=== PATIENT | female | born 1995 | race Hispanic/Latino ===

== ENCOUNTER 2018-09-26 23:48 | Emergency (ER) | payer SELFPAY ==
[2018-09-27 00:21] LABS: Urine Blood 3+ (NEG); Urine Glucose TRACE (NEG); Urine Protein 2+ (NEG); Urine Specific Gravity 1.025 (1.005-1.030); Urine pH 6.5 (5.0-7.0)
--- NOTE | 2018-09-27 00:33 | EDPHYS ---
Physician Documentation [facility] Name: Emily Jiménez Age: 22 yrs Sex: Female : 1995 Arrival Date: 09/26/2018 Time: 23:49 Bed 5 Private MD: ED Physician Jersey Jewell HPI: 09/27 00:00 This 22 yrs old Female presents to ER via Unassigned with complaints of Pain snw With Urination - blood, Abdominal Pain. 00:00 Onset: The symptoms/episode began/occurred 2 day(s) ago, and became persistent. snw Associated signs and symptoms: Pertinent positives: abdominal pain, dysuria. Modifying factors: The patient symptoms are alleviated by nothing, the patient symptoms are aggravated by nothing. The patient has experienced a previous episode. It is unknown whether or not the patient has recently seen a physician. states last time she urinated she had some hematuria. 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 - Social history:: Smoking status: Patient/guardian denies using tobacco. - Ebola Screening: : No symptoms or risks identified at this time. ROS: 00:00 Constitutional: Negative for fever, chills, and weight loss, Eyes: Negative for injury, snw pain, redness, and discharge, ENT: Negative for injury, pain, and discharge, Neck: Negative for injury, pain, and swelling, Cardiovascular: Negative for chest pain, palpitations, and edema, Respiratory: Negative for shortness of breath, cough, wheezing, and pleuritic chest pain, Back: Negative for injury and pain, MS/Extremity: Negative for injury and deformity, Skin: Negative for injury, rash, and discoloration, Neuro: Negative for headache, weakness, numbness, tingling, and seizure. 00:00 Abdomen/GI: Positive for abdominal pain, nausea, Negative for vomiting. 00:00 : Positive for urinary symptoms. Exam: 09/26 23:59 Constitutional: This is a well developed, well nourished patient who is awake, alert, snw and in no acute distress. Head/Face: Normocephalic, atraumatic. Eyes: Pupils equal round and reactive to light, extra-ocular motions intact. Lids and lashes normal. Conjunctiva and sclera are non-icteric and not injected. Cornea within normal limits. Periorbital areas with no swelling, redness, or edema. ENT: Nares patent. No nasal discharge, no septal abnormalities noted. Tympanic membranes are normal and external auditory canals are clear. Oropharynx with no redness, swelling, or masses, exudates, or evidence of obstruction, uvula midline. Mucous membranes moist. Neck: Trachea midline, no thyromegaly or masses palpated, and no cervical lymphadenopathy. Supple, full range of motion without nuchal rigidity, or vertebral point tenderness. No Meningismus. Chest/axilla: Normal chest wall appearance and motion. Nontender with no deformity. No lesions are appreciated. Cardiovascular: Regular rate and rhythm with a normal S1 and S2. No gallops, murmurs, or rubs. Normal PMI, no JVD. No pulse deficits. Respiratory: Lungs have equal breath sounds bilaterally, clear to auscultation and percussion. No rales, rhonchi or wheezes noted. No increased work of breathing, no retractions or nasal flaring. Back: No spinal tenderness. No costovertebral tenderness. Full range of motion. Skin: Warm, dry with normal turgor. Normal color with no rashes, no lesions, and no evidence of cellulitis. MS/ Extremity: Pulses equal, no cyanosis. Neurovascular intact. Full, normal range of motion. Neuro: Awake and alert, GCS 15, oriented to person, place, time, and situation. Cranial nerves II-XII grossly intact. Motor strength 5/5 in all extremities. Sensory grossly intact. Cerebellar exam normal. Normal gait. Abdomen/GI: Inspection: abdomen appears normal, Bowel sounds: normal, Palpation: mild abdominal tenderness, in the right lower quadrant and left lower quadrant. Vital Signs: 09/27 00:05 BP 122 / 84; Pulse 78; Resp 18; Temp 97.8(O); Pulse Ox 98% on R/A; Weight 52.16 kg; lp1 Height 5 ft. 4 in. (162.56 cm); Pain 6/10; 00:05 Body Mass Index 19.74 (52.16 kg, 162.56 cm) lp1 MDM: 09/26 23:59 Patient medically screened. snw 09/27 00:35 Data reviewed: vital signs, nurses notes. Data interpreted: Pulse oximetry: on room air snw is 98 %. Interpretation: normal. Counseling: I had a detailed discussion with the patient and/or guardian regarding: the historical points, exam findings, and any diagnostic results supporting the discharge/admit diagnosis, lab results, the need for outpatient follow up, to return to the emergency department if symptoms worsen or persist or if there are any questions or concerns that arise at home. Special discussion: Based on the patient's Hx, exam, and Dx evaluation, there is no indication for emergent surgery or inpatient Tx. It is understood by the patient/guardian that if the Sx's persist or worsen they need to return immediately for re-evaluation. Based on the history and exam findings, there is no indication for further emergent testing or inpatient evaluation. I discussed with the patient/guardian the need to see the primary care provider for further evaluation of the symptoms. 09/26 23:59 Order name: Urine Culture snw 09/26 23:59 Order name: Urine Microscopic Only; Complete Time: 00:43 snw 09/27 00:16 Order name: Urine Dipstick--Ancillary (enter results); Complete Time: 00:31 ak1 09/27 00:16 Order name: Urine --Ancillary (enter results); Complete Time: 00:31 ak1 09/26 23:59 Order name: Urine Test (obtain specimen); Complete Time: 00:17 snw 09/26 23:59 Order name: Urine Dipstick-Ancillary (obtain specimen); Complete Time: 00:17 snw Administered Medications: 00:45 Drug: [place] 5 mg-325 mg 1 tabs Route: PO; lp1 01:01 Follow up: Response: No adverse reaction; Medication administered at discharge. lp1 00:45 Drug: Rocephin (cefTRIAXone) 1 grams Route: IM; Site: right gluteus; lp1 01:01 Follow up: Response: No adverse reaction; Medication administered at discharge. lp1 Disposition: 01:13 Co-signature as Attending Physician, Jersey Jewell MD. rn Disposition: 09/27/18 00:33 Discharged to Home. Impression: Urinary tract infection, site not specified. - Condition is Stable. - Discharge Instructions: Urinary Tract Infection, Adult. - Prescriptions for Pyridium 200 mg Oral Tablet - take 1 tablet by ORAL route every 8 hours for 3 days; 9 tablet. Macrobid 100 mg Oral Capsule - take 1 capsule by ORAL route every 12 hours for 10 days; 20 capsule. - Work release form, Medication Reconciliation Form, Thank You Letter, Antibiotic Education, Prescription Opioid Use form. - Follow up: Private Physician; When: 2 - 3 days; Reason: Recheck today's complaints, Continuance of care, Re-evaluation by your physician. Follow up: Emergency Department; When: As needed; Reason: Worsening of condition. Signatures: Dispatcher [employer] EDMS Tayler Thorne, SUSAN-C INDIRECT SALES EXEC-Csnw Jersey Jewell MD MD rn Riggs, Erika RN RN ed1 Lu Olivares RN RN lp1 Corrections: (The following items were deleted from the chart) 01:02 00:33 09/27/2018 00:33 Discharged to Home. Impression: Urinary tract infection, site lp1 not specified. Condition is Stable. Forms are Medication Reconciliation Form, Thank You Letter, Antibiotic Education, Prescription Opioid Use. Follow up: Private Physician; When: 2 - 3 days; Reason: Recheck today's complaints, Continuance of care, Re-evaluation by your physician. Follow up: Emergency Department; When: As needed; Reason: Worsening of condition. snw
--- NOTE | 2018-09-27 00:33 | ER ---
Nurse's Notes [facility] Name: Emily Jiménez Age: 22 yrs Sex: Female : 1995 Arrival Date: 09/26/2018 Time: 23:49 Bed 5 Private MD: Diagnosis: Urinary tract infection, site not specified Presentation: 09/27 00:01 Presenting complaint: Patient states: Pain with urination since about 1400, states lp1 blood when wiping; Complaint of frequent urination. Transition of care: patient was not received from another setting of care. Onset of symptoms was September 27, 2018. Risk Assessment: Do you want to hurt yourself or someone else? Patient reports no desire to harm self or others. Initial Sepsis Screen: Does the patient meet any 2 criteria? No. Patient's initial sepsis screen is negative. Does the patient have a suspected source of infection? No. Patient's initial sepsis screen is negative. Care prior to arrival: None. 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 - Social history:: Smoking status: Patient/guardian denies using tobacco. - Ebola Screening: : No symptoms or risks identified at this time. Screenin:06 Abuse screen: Denies threats or abuse. Denies injuries from another. Nutritional lp1 screening: No deficits noted. Tuberculosis screening: No symptoms or risk factors identified. Fall Risk None identified. Assessment: 00:05 General: Appears in no apparent distress. Behavior is appropriate for age. Pain: lp1 Complains of pain in suprapubic area Pain currently is 6 out of 10 on a pain scale. Neuro: No deficits noted. Cardiovascular: No deficits noted. Respiratory: No deficits noted. GI: Abdomen is flat, Abdomen is tender to palpation in suprapubic area. : Reports burning with urination, urinary frequency, vaginal bleeding that is spotty. EENT: No deficits noted. Derm: Skin is pink, warm \T\ dry. Musculoskeletal: No deficits noted. Vital Signs: 00:05 BP 122 / 84; Pulse 78; Resp 18; Temp 97.8(O); Pulse Ox 98% on R/A; Weight 52.16 kg; lp1 Height 5 ft. 4 in. (162.56 cm); Pain 6/10; 00:05 Body Mass Index 19.74 (52.16 kg, 162.56 cm) lp1 ED Course: 09/26 23:49 Patient arrived in ED. am2 23:54 Tayler Thorne F[facility]C [facility] snw 23:54 Jersey Jewell MD is Attending Physician. snw 09/27 00:01 Lu Olivares, RN is Primary Nurse. lp1 00:02 Triage completed. lp1 00:05 Arm band placed on left wrist. lp1 00:07 No provider procedures requiring assistance completed. Patient did not have IV access lp1 during this emergency room visit. 00:08 Patient has correct armband on for positive identification. lp1 Administered Medications: 00:45 Drug: [place] 5 mg-325 mg 1 tabs Route: PO; lp1 01:01 Follow up: Response: No adverse reaction; Medication administered at discharge. lp1 00:45 Drug: Rocephin (cefTRIAXone) 1 grams Route: IM; Site: right gluteus; lp1 01:01 Follow up: Response: No adverse reaction; Medication administered at discharge. lp1 Outcome: 00:33 Discharge ordered by . snw 01:02 Discharged to home ambulatory, with friend. lp1 01:02 Condition: good 01:02 Discharge instructions given to patient, Instructed on discharge instructions, follow up and referral plans. medication usage, Demonstrated understanding of instructions, follow-up care, medications, Prescriptions given X 2. 01:02 Patient left the ED. lp1 Addendum: 09/30/2018 07:36 Addendum: Culture Results: Positive urine culture. No further action required. Bacteria s s sensitive to prescribed antibiotic. Signatures: Tayler Thorne FNP-C STRING STUDIES DIRECTOR-Celine Jarrett RN RN Lu Olivares, NORY RN lp1 Paula Sharpe am2
[2018-09-27 00:36] LABS: Urine Bacteria 20-50 /HPF (<20); Urine RBC >50 /HPF (NONE SEEN)
[2018-09-27 00:37] LABS: Urine Culture Reflex Order NOT NEEDED
[2018-09-27] MEDS ORDERED: HYDROCODONE/APAP 5/325 MG TAB ONE (00:53)
[2018-09-27] MEDS ORDERED: CEFTRIAXONE 1000 MG/VIAL ONE (00:53)
== END 2018-09-27 01:02 | disposition home or self-care (01) ==
LOC: ER 23:48
DX: N39.0 Urinary tract infection, site not specified (principal)
CPT/HCPCS: 81003; 81015; 81025; 87077; 87086; 87088; 87186; 96372; 99283

== ENCOUNTER 2018-11-05 03:01 | Emergency (ER) | payer OTHER, SELFPAY ==
[2018-11-05] MEDS ORDERED: ONDANSETRON 4 MG/2 ML VIAL ONE (04:04)
[2018-11-05] MEDS ORDERED: KETOROLAC 30 MG/ML INJ ONE (04:04)
[2018-11-05] MEDS ORDERED: FAMOTIDINE 20 MG/2 ML VIAL IV ONE (04:04)
[2018-11-05] MEDS ORDERED: NA CHLORIDE 0.9% 1,000 ML ONE (04:04)
[2018-11-05 04:58] LABS: Urine Appearance CLOUDY; Urine Bilirubin NEGATIVE (NEG); Urine Blood 3+ (NEG); Urine Glucose NEGATIVE (NEG); Urine Protein 1+ (NEG); Urine Specific Gravity 1.025 (1.005-1.030); Urine pH 7.5 (5.0-7.0)
[2018-11-05 05:03] LABS: Urine Color AMBER
[2018-11-05 05:08] LABS: Absolute Lymphocytes (CBC) 1.1 K/uL (0.7-4.9); Basophils % 0.2 % (0-1.3); Eosinophils % 0.5 % (0-4.4); Hematocrit 43.2 % (36.0-45.0); MPV 7.7 fL (7.6-11.3); Monocytes % 4.2 % (3.3-12.3); RBC Red Blood Cell Count 4.35 M/uL (3.86-4.86)
[2018-11-05 05:24] LABS: ALT/SGPT 22 U/L (12-78); AST/SGOT 22 U/L (15-37); Albumin 3.8 g/dL (3.4-5.0); Alkaline Phosphatase 91 U/L (45-117); BUN Blood Urea Nitrogen 7 mg/dL (7-18); Bicarbonate 27 mmol/L (21-32); Bilirubin Direct < 0.1 mg/dL (0-0.2); Bilirubin Total 0.3 mg/dL (0.2-1.0); Glucose Level 98 mg/dL (74-106); Lipase 265 U/L (73-393); Potassium 4.5 mmol/L (3.5-5.1); Protein, Total 7.5 g/dL (6.4-8.2); Sodium Level 142 mmol/L (136-145)
[2018-11-05 05:31] LABS: Specific Gravity 1.025 (1.005-1.030); Urine Culture Reflex Order REFLEXED
[2018-11-05 05:33] LABS: Urine RBC >50 /HPF (NONE SEEN)
[2018-11-05 05:34] LABS: Urine Bacteria <20 /HPF (<20)
--- NOTE | 2018-11-05 06:35 | ER ---
Nurse's Notes [facility] Name: Emily Jiménez Age: 23 yrs Sex: Female : 1995 Arrival Date: 11/05/2018 Time: 03:06 Bed 4 Private MD: Diagnosis: acute abdominal pain;vomiting;acute UTI Presentation: 11/05 03:10 Method Of Arrival: Ambulatory 03:10 Presenting complaint: Patient states: that she had abd pain all day yesterday with fc nausea. She then ate sheep last night at 2000. Then this am at 0100 she started to vomit. Has vomited x 5 and the last time it was blood. Transition of care: patient was not received from another setting of care. Onset of symptoms was November 04, 2018. Risk Assessment: Do you want to hurt yourself or someone else? Patient reports no desire to harm self or others. Initial Sepsis Screen: Does the patient meet any 2 criteria? No. Patient's initial sepsis screen is negative. Does the patient have a suspected source of infection? No. Patient's initial sepsis screen is negative. Care prior to arrival: None. 03:10 Acuity: DILIP 3 fc CLINICAL APPEALS RN: 04:15 LMP 11/05/2018 lp1 Historical: - Allergies: 03:27 No Known Allergies; fc - Home Meds: 03:27 None [Active]; fc - PMHx: 03:27 Thyroid problem; fc - PSHx: 03:27 None; fc - Immunization history:: Last tetanus immunization: up to date. - Social history:: Smoking status: Patient/guardian denies using tobacco, Patient/guardian denies using alcohol, street drugs. - Ebola Screening: : Patient negative for fever greater than or equal to 101.5 degrees Fahrenheit, and additional compatible Ebola Virus Disease symptoms Patient denies exposure to infectious person Patient denies travel to an Ebola-affected area in the 21 days before illness onset. - Family history:: not pertinent. - Hospitalizations: : No recent hospitalization is reported. Screenin:27 Abuse screen: Denies threats or abuse. Nutritional screening: No deficits noted. fc Tuberculosis screening: No symptoms or risk factors identified. Fall Risk None identified. Assessment: 03:30 General: Appears uncomfortable, Behavior is appropriate for age. Pain: Complains of lp1 pain in abdomen Pain currently is 7 out of 10 on a pain scale. Quality of pain is described as sharp. Neuro: Level of Consciousness is awake, alert, obeys commands, Oriented to person, place, time, situation. Cardiovascular: Patient's skin is warm and dry. Respiratory: Respiratory effort is even, unlabored. GI: Abdomen is flat, Bowel sounds present X 4 quads. Reports lower abdominal pain, upper abdominal pain, cramping, nausea, vomiting. : No signs and/or symptoms were reported regarding the genitourinary system. EENT: No signs and/or symptoms were reported regarding the EENT system. Derm: Skin is intact, Skin is dry, Skin is normal. Musculoskeletal: No deficits noted. 04:30 Reassessment: Patient states pain and nausea decreased at this time. lp1 05:57 Reassessment: Patient returned from CT at this time. lp1 06:43 Reassessment: Patient appears in no apparent distress at this time. Patient states lp1 feeling better. Patient states symptoms have improved. Vital Signs: 03:10 BP 127 / 84; Pulse 77; Resp 18; Temp 98.7(O); Pulse Ox 100% on R/A; Weight 52.16 kg fc (R); Height 5 ft. 4 in. (162.56 cm) (R); Pain 7/10; 04:15 BP 119 / 67; Pulse 64; Resp 16; Pulse Ox 100% on R/A; Pain 5/10; lp1 05:00 BP 106 / 64; Pulse 79; Resp 16; Pulse Ox 100% on R/A; lp1 06:19 BP 101 / 75; Pulse 66; Resp 16; Pulse Ox 100% on R/A; lp1 06:43 BP 111 / 68; Pulse 70; Resp 16; Pulse Ox 100% on R/A; Pain 2/10; lp1 03:10 Body Mass Index 19.74 (52.16 kg, 162.56 cm) ED Course: 03:06 Patient arrived in ED. am2 03:10 Arm band placed on Patient placed in an exam room, on a stretcher. 03:10 Patient has correct armband on for positive identification. Bed in low position. Call light in reach. Pulse ox on. NIBP on. 03:24 Tanner Alberto MD is Attending Physician. wa 03:26 Triage completed. 03:30 Lu Olivares, RN is Primary Nurse. lp1 03:35 Inserted saline lock: 20 gauge in right antecubital area, using aseptic technique. lp1 Blood collected. 04:05 Radiology exam delayed due to lab results not completed at this time. (BUN/Creatinine) kw1 test not completed at this time. 04:30 Radiology exam delayed due to lab results not completed at this time. (BUN/Creatinine) kw1 test not completed at this time. 04:45 Lab(s) recollected, by me, sent to lab. 20g to R AC DC'd due to not easily flushing. lp1 Inserted saline lock: 22 gauge in right antecubital area, using aseptic technique. 05:23 Radiology exam delayed due to lab results not completed at this time. (BUN/Creatinine) kw1 test not completed at this time. 06:03 CT Abd/Pelvis - IV Contrast Only In Process Unspecified. EDMS 06:20 No provider procedures requiring assistance completed. lp1 06:33 Tanner Hernandez MD is Referral Physician. wa Administered Medications: 04:05 Drug: NS 0.9% 1000 ml Route: IV; Rate: 1 bolus; Site: right antecubital; lp1 05:30 Follow up: IV Status: Completed infusion; IV Intake: 1000ml lp1 04:06 Drug: Zofran 4 mg Route: IVP; Site: right antecubital; lp1 04:30 Follow up: Response: Nausea is decreased lp1 04:06 Drug: Pepcid 20 mg Route: IVP; Site: right antecubital; lp1 04:30 Follow up: Response: No adverse reaction lp1 04:06 Drug: TORadol 30 mg Route: IVP; Site: right antecubital; lp1 04:30 Follow up: Response: Pain is decreased lp1 06:42 Drug: Rocephin - (cefTRIAXone) 1 grams Route: IVPB; Infused Over: 30 mins; Site: right lp1 antecubital; 07:08 Follow up: Response: No adverse reaction; IV Status: Completed infusion; IV Intake: [id number] Intake: 05:30 IV: 1000ml; Total: 1000ml. lp1 07:08 IV: 10ml; Total: 1010ml. lp1 Outcome: 06:34 Discharge ordered by . elif 07:07 Discharged to home ambulatory, with significant other. lp1 07:07 Condition: good 07:07 Discharge instructions given to patient, Instructed on discharge instructions, follow up and referral plans. medication usage, Demonstrated understanding of instructions, follow-up care, medications, Prescriptions given X 2. 07:08 Patient left the ED. lp1 Signatures: Dispatcher [employer] EDMS Cara Flores RN RN Lu Olivares RN RN lp1 Paula Sharpe am2 Tanner Alberto MD MD wa Wilhelm, Kimberly kw1
--- NOTE | 2018-11-05 06:35 | EDPHYS ---
Physician Documentation [facility] Name: Emily Jiménez Age: 23 yrs Sex: Female : 1995 Arrival Date: 11/05/2018 Time: 03:06 Bed 4 Private MD: ED Physician Tanner Alberto HPI: 11/05 03:41 This 23 yrs old Female presents to ER via Ambulatory with complaints of wa Vomiting - BLOOD. 03:41 The patient presents with abdominal pain in the lower abdomen. Onset: The wa symptoms/episode began/occurred yesterday. The symptoms do not radiate. Associated signs and symptoms: Pertinent positives: vomiting, Pertinent negatives: diarrhea. The symptoms are described as achy. Modifying factors: The symptoms are alleviated by nothing, the symptoms are aggravated by nothing. Severity of pain: At its worst the pain was moderate in the emergency department the pain is unchanged. The patient has not experienced similar symptoms in the past. The patient has not recently seen a physician. 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 - Social history:: Smoking status: Patient/guardian denies using tobacco, Patient/guardian denies using alcohol, street drugs. - Ebola Screening: : Patient negative for fever greater than or equal to 101.5 degrees Fahrenheit, and additional compatible Ebola Virus Disease symptoms Patient denies exposure to infectious person Patient denies travel to an Ebola-affected area in the 21 days before illness onset. - Family history:: not pertinent. - Hospitalizations: : No recent hospitalization is reported. ROS: 03:42 Constitutional: Negative for fever, chills, and weight loss, Eyes: Negative for injury, wa pain, redness, and discharge, ENT: Negative for injury, pain, and discharge, Neck: Negative for injury, pain, and swelling, Cardiovascular: Negative for chest pain, palpitations, and edema, Respiratory: Negative for shortness of breath, cough, wheezing, and pleuritic chest pain, Back: Negative for injury and pain, : Negative for injury, bleeding, discharge, and swelling, MS/Extremity: Negative for injury and deformity, Skin: Negative for injury, rash, and discoloration, Neuro: Negative for headache, weakness, numbness, tingling, and seizure, Psych: Negative for depression, anxiety, suicide ideation, homicidal ideation, and hallucinations. 03:42 Abdomen/GI: Positive for abdominal pain, nausea, vomiting, Negative for diarrhea, constipation. Exam: 03:43 Constitutional: This is a well developed, well nourished patient who is awake, alert, wa and in no acute distress. Head/Face: Normocephalic, atraumatic. Eyes: Pupils equal round and reactive to light, extra-ocular motions intact. Lids and lashes normal. Conjunctiva and sclera are non-icteric and not injected. Cornea within normal limits. Periorbital areas with no swelling, redness, or edema. ENT: Nares patent. No nasal discharge, no septal abnormalities noted. Tympanic membranes are normal and external auditory canals are clear. Oropharynx with no redness, swelling, or masses, exudates, or evidence of obstruction, uvula midline. Mucous membranes moist. Neck: Trachea midline, no thyromegaly or masses palpated, and no cervical lymphadenopathy. Supple, full range of motion without nuchal rigidity, or vertebral point tenderness. No Meningismus. Chest/axilla: Normal chest wall appearance and motion. Nontender with no deformity. No lesions are appreciated. Cardiovascular: Regular rate and rhythm with a normal S1 and S2. No gallops, murmurs, or rubs. Normal PMI, no JVD. No pulse deficits. Respiratory: Lungs have equal breath sounds bilaterally, clear to auscultation and percussion. No rales, rhonchi or wheezes noted. No increased work of breathing, no retractions or nasal flaring. Back: No spinal tenderness. No costovertebral tenderness. Full range of motion. Skin: Warm, dry with normal turgor. Normal color with no rashes, no lesions, and no evidence of cellulitis. MS/ Extremity: Pulses equal, no cyanosis. Neurovascular intact. Full, normal range of motion. Neuro: Awake and alert, GCS 15, oriented to person, place, time, and situation. Cranial nerves II-XII grossly intact. Motor strength 5/5 in all extremities. Sensory grossly intact. Cerebellar exam normal. Normal gait. Psych: Awake, alert, with orientation to person, place and time. Behavior, mood, and affect are within normal limits. 03:43 Abdomen/GI: Inspection: abdomen appears normal, Bowel sounds: active, all quadrants, Palpation: moderate abdominal tenderness, in the suprapubic area, right lower quadrant and left lower quadrant. Vital Signs: 03:10 BP 127 / 84; Pulse 77; Resp 18; Temp 98.7(O); Pulse Ox 100% on R/A; Weight 52.16 kg fc (R); Height 5 ft. 4 in. (162.56 cm) (R); Pain 7/10; 04:15 BP 119 / 67; Pulse 64; Resp 16; Pulse Ox 100% on R/A; Pain 5/10; lp1 05:00 BP 106 / 64; Pulse 79; Resp 16; Pulse Ox 100% on R/A; lp1 06:19 BP 101 / 75; Pulse 66; Resp 16; Pulse Ox 100% on R/A; lp1 06:43 BP 111 / 68; Pulse 70; Resp 16; Pulse Ox 100% on R/A; Pain 2/10; lp1 03:10 Body Mass Index 19.74 (52.16 kg, 162.56 cm) MDM: 03:25 Patient medically screened. tx 03:42 Differential diagnosis: appendicitis, bowel obstruction, cholecystitis, Cholelithiasis, wa Endometriosis, gastritis, non-specific abd pain, pancreatitis, urinary tract infection. 06:32 Data reviewed: vital signs, nurses notes, lab test result(s), radiologic studies. Test wa interpretation: by ED physician or midlevel provider: UA noted for UTI. CT noted for moderate colonic stool burden. no obstruction. Response to treatment: the patient's symptoms have markedly improved after treatment. ED course: IV abx given. will d/c with abx and stool softener. 11/05 03:29 Order name: Basic Metabolic Panel 11/05 03:29 Order name: CBC with Diff; Complete Time: 05:27 11/05 03:29 Order name: Creatinine for Radiology; Complete Time: 05:27 11/05 03:29 Order name: Hepatic Function; Complete Time: 05:27 11/05 03:31 Order name: CT Abd/Pelvis - IV Contrast Only 11/05 03:31 Order name: Basic Metabolic Panel; Complete Time: 05:27 EDIL 11/05 03:59 Order name: UA ar5 11/05 04:07 Order name: Urinalysis W/Microscopic; Complete Time: 06:11 [facility] 11/05 04:16 Order name: Lipase; Complete Time: 05:27 EDIL 11/05 05:28 Order name: Test, Urine; Complete Time: 06:11 [facility] 11/05 05:36 Order name: Urine Culture [facility] 11/05 03:29 Order name: IV Saline Lock; Complete Time: 03:41 tx 11/05 03:29 Order name: Labs collected and sent; Complete Time: 03:41 tx 11/05 03:30 Order name: Urine Dipstick-Ancillary (obtain specimen); Complete Time: 04:06 tx 11/05 03:30 Order name: Urine Test (obtain specimen); Complete Time: 03:42 tx Administered Medications: 04:05 Drug: NS 0.9% 1000 ml Route: IV; Rate: 1 bolus; Site: right antecubital; lp1 05:30 Follow up: IV Status: Completed infusion; IV Intake: 1000ml lp1 04:06 Drug: Zofran 4 mg Route: IVP; Site: right antecubital; lp1 04:30 Follow up: Response: Nausea is decreased lp1 04:06 Drug: Pepcid 20 mg Route: IVP; Site: right antecubital; lp1 04:30 Follow up: Response: No adverse reaction lp1 04:06 Drug: TORadol 30 mg Route: IVP; Site: right antecubital; lp1 04:30 Follow up: Response: Pain is decreased lp1 06:42 Drug: Rocephin - (cefTRIAXone) 1 grams Route: IVPB; Infused Over: 30 mins; Site: right lp1 antecubital; 07:08 Follow up: Response: No adverse reaction; IV Status: Completed infusion; IV Intake: [id number] Disposition: 11/05/18 06:34 Discharged to Home. Impression: acute abdominal pain, vomiting, acute UTI. - Condition is Stable. - Discharge Instructions: Nausea and Vomiting, Adult, [id number], Urinary Tract Infection, Adult, [id number], Abdominal Pain, Adult, [id number]. - Prescriptions for Keflex 500 mg Oral Capsule - take 1 capsule by ORAL route every 8 hours for 3 days; 9 capsule. Zofran 4 mg Oral Tablet - take 1 tablet by ORAL route every 12 hours As needed; 20 tablet. - Work release form, Medication Reconciliation Form, Thank You Letter, Antibiotic Education, Prescription Opioid Use form. - Follow up: Tanner Hernandez MD; When: 1 - 2 days; Reason: Recheck today's complaints. - Problem is new. - Symptoms have improved. - Notes: take medication as prescribed. follow up with the gastro doctor for further evaluation Signatures: Dispatcher [employer] EDIL Cara Flores, RN RN fc Lu Olivares RN RN lp1 DollyTanner MD MD wa Corrections: (The following items were deleted from the chart) 04:07 03:31 UA MICROSCOPIC+U.LAB.BRZ ordered. EDIL EDIL 04:16 03:31 LIPASE+C.LAB.BRZ ordered. [facility] EDIL 07:08 06:34 11/05/2018 06:34 Discharged to Home. Impression: acute abdominal pain; vomiting; lp1 acute UTI. Condition is Stable. Forms are Medication Reconciliation Form, Thank You Letter, Antibiotic Education, Prescription Opioid Use. Follow up: Tanner Hernandez; When: 1 - 2 days; Reason: Recheck today's complaints. Problem is new. Symptoms have improved. wa
[2018-11-05] MEDS ORDERED: CEFTRIAXONE/SWI 1gm 1 GM/10 ML SYR ONE (06:50)
--- NOTE | 2018-11-05 09:42 | RAD REPORT ---
EXAM DESCRIPTION: CT - Abdomen Pelvis W Contrast - 11/05/2018 6:28 am CLINICAL HISTORY: The patient is 23 years old and is Female; ABD PAIN TECHNIQUE: Axial computed tomography images of the abdomen and pelvis with intravenous contrast. S agittal and coronal reformatted images were created and reviewed. This CT exam was performed using one or more of the following dose reduction techniques: automated exposure control, adjustment of t he mA and/or kV according to patient size, and/or use of iterative reconstruction technique. COMPARISON: No relevant prior studies available. FINDINGS: LUNG BASES: Unremarkable. No mass. No consolidation. ABDOMEN: LIVER: A 3.6 x 3.1 cm hyperattenuating lesion within the left hepatic lobe with a central scar i s present on the arterial phase imaging. On the portal venous phase imaging, the lesion completely fi lls in. The liver is otherwise unremarkable. GALLBLADDER AND BILE DUCTS: No calcified stones. No ductal dilation. PANCREAS: No ductal dilation. No mass. SPLEEN: Unremarkable. ADRENALS: Unremarkable. No mass. KIDNEYS AND URETERS: Unremarkable. No solid mass. No hydronephrosis. STOMACH AND BOWEL: The stomach is distended with food contents. The small bowel is normal in reed iber. Stool is present throughout the colon. There is no mucosal thickening or evidence of bowel obst ruction. PELVIS: APPENDIX: The appendix is normal in caliber without surrounding inflammation. BLADDER: The bladder is well distended. REPRODUCTIVE: A 1 cm right ovarian cyst is present. No follow-up imaging is recommended. The ra florencia and left ovary are normal. ABDOMEN and PELVIS: INTRAPERITONEAL SPACE: Unremarkable. No free air. No significant fluid collection. BONES/JOINTS: Evidence of a limbus vertebra at L5 is noted. SOFT TISSUES: The soft tissues are normal. VASCULATURE: Unremarkable. No abdominal aortic aneurysm. LYMPH NODES: Unremarkable. No enlarged lymph nodes. IMPRESSION: 1. Moderate stool burden without obstruction. 2. Hyperattenuating lesion within the left hepatic lobe is present. Given the appearance, findings may be secondary to an FNH versus hemangioma. ACR White Paper guidelines (Rocío, et al. JACR 2010 ; 7(10):756-73) suggest that no follow-up is necessary. Electronically signed by: Liliana Daugherty MD 11/05/2018 6:23 AM CDT Due to temporary technical issues with the PACS/Fluency reporting system, reports are being signed by the in house radiologist as a courtesy to ensure prompt reporting. The interpreting radiologist is f ully responsible for the content of the report.
== END 2018-11-05 07:08 | disposition home or self-care (01) ==
LOC: ER 03:01
DX: N39.0 Urinary tract infection, site not specified (principal); R11.2 Nausea with vomiting, unspecified
CPT/HCPCS: 36415; 74177; 80048; 80076; 81001; 81025; 83690; 85025; 87086; 87088; 96361; 96365; 96375; 99284; J0696; J2405; J7030; Q9967